=== PATIENT | female | born 1995 | race American Indian/Alaskan Native ===

== ENCOUNTER 2020-01-01 13:05 | Emergency (ER) | payer MEDICAID ==
[2020-01-01] MEDS ORDERED: IPRATROPIUM/ALBUTEROL SULFATE 3 ML AMPUL.NEB IH ONE (13:29)
[2020-01-01] MEDS ORDERED: dexAMETHasone 20 MG/5 ML VIAL IM ONE (13:29)
--- NOTE | 2020-01-01 14:49 | Emergency Department Report ---
ED Asthma HPI - General Chief Complaint: Adult Asthma Stated Complaint: ASTHMA Time Seen by Provider: 01/01/20 13:29 Source: patient Mode of arrival: Ambulatory Limitations: No Limitations - History of Present Illness Initial Comments: Patient is a 24-year-old female presents emergency room with complaints of asthma exacerbation for 3 days. She has had associated shortness of breath and wheezing for the last month but states it got worse in the last 3 days. She states that she ran out of her albuterol inhaler. She states that her AGILE TESTER Dr. Isaac at [facility] prescribed her a nebulizer machine but her insurance would not cover it and she did not prescribe her an inhaler. She denies any cough, nausea, vomiting, diarrhea, fever, abdominal pain, vaginal discharge or bleeding. She denies any allergies to medications. - Related Data Previous Rx's Medication Instructions Recorded Last Taken Type Albuterol INH(or & Nicu Only) 2 puff IH QID PRN #8.5 gram 01/01/20 Unknown Rx [ProAir HFA Inhaler] Prednisone [predniSONE 10 mg 10 mg PO .TAPER #1 tab.ds.pk 01/01/20 Unknown Rx (6-Day Pack, 21 Tabs)] Allergies Allergy/AdvReac Type Severity Reaction Status Date / Time No Known Allergies Allergy Unverified 01/01/20 13:06 ED Review of Systems ROS: Stated complaint: ASTHMA Other details as noted in HPI Comment: All other systems reviewed and negative ED Past Medical Hx - Past Medical History Previous Medical History?: Yes Hx Asthma: Yes - Surgical History Past Surgical History?: No - Social History Smoking Status: Never Smoker Substance Use Type: None - Medications Home Medications: Home Medications Medication Instructions Recorded Confirmed Last Taken Type Albuterol INH(or & Nicu Only) 2 puff IH QID PRN #8.5 gram 01/01/20 Unknown Rx [ProAir HFA Inhaler] Prednisone [predniSONE 10 mg 10 mg PO .TAPER #1 tab.ds.pk 01/01/20 Unknown Rx (6-Day Pack, 21 Tabs)] ED Physical Exam - General Limitations: No Limitations General appearance: alert, in no apparent distress - Head Head exam: Present: atraumatic, normocephalic - Eye Eye exam: Present: normal appearance - ENT ENT exam: Present: mucous membranes moist - Respiratory Respiratory exam: Present: decreased breath sounds (bilaterally). Absent: respiratory distress, wheezes, rales, rhonchi, stridor, chest wall tenderness, accessory muscle use - Cardiovascular Cardiovascular Exam: Present: regular rate, normal rhythm, normal heart sounds. Absent: systolic murmur, diastolic murmur, rubs, gallop - Neurological Exam Neurological exam: Present: alert, oriented X3 - Psychiatric Psychiatric exam: Present: normal affect, normal mood - Skin Skin exam: Present: warm, dry, intact ED Course Vital Signs 01/01/20 01/01/20 13:06 15:04 Temperature 98.4 F 98.7 F Pulse Rate 86 76 Respiratory 20 18 Rate Blood Pressure 125/68 Blood Pressure 132/72 [Left] O2 Sat by Pulse 100 99 Oximetry ED Medical Decision Making - Medical Decision Making Patient is a 24-year-old female presents emergency room with complaints of asthma exacerbation for 3 days. She has had associated shortness of breath and wheezing for the last month but states it got worse in the last 3 days. She states that she ran out of her albuterol inhaler. She states that her AGILE TESTER Dr. Isaac at [facility] prescribed her a nebulizer machine but her insurance would not cover it and she did not prescribe her an inhaler. She denies any cough, nausea, vomiting, diarrhea, fever, abdominal pain, vaginal discharge or bleeding. She denies any allergies to medications. Vitals are normal. On exam the decreased breath sounds bilaterally. Patient given de xamethasone IM and DuoNeb. After medications breath sounds have completely improved, patient has very good air movement, no wheezing, no rales, no rhonchi, no respiratory distress, no accessory muscle use, clear breath sounds. no clinical s/sx of PNA. Patient given prescription for albuterol inhaler and steroids. Advised patient to call to other pharmacies and discuss with her AGILE TESTER about where to get nebulizer machine. Advised patient Please take medication as prescribed. Please follow-up with your AGILE TESTER. Please follow-up with your primary care doctor. Return to emergency room for any new or worsening symptoms. Critical care attestation.: If time is entered above; I have spent that time in minutes in the direct care of this critically ill patient, excluding procedure time. ED Disposition Clinical Impression: Asthma Qualifiers: Asthma severity: unspecified severity Asthma persistence: unspecified Asthma complication type: with acute exacerbation Qualified Code(s): J45.901 - Unspecified asthma with (acute) exacerbation Disposition: - TO HOME OR SELFCARE Is pt being admited?: No Does the pt Need Aspirin: No Condition: Stable Instructions: Asthma (ED) Additional Instructions: Please take medication as prescribed. Please follow-up with your AGILE TESTER. Please follow-up with your primary care doctor. Return to emergency room for any new or worsening symptoms. Prescriptions: Prednisone [predniSONE 10 mg (6-Day Pack, 21 Tabs)] 10 mg PO .TAPER #1 tab.ds.pk Albuterol INH(or & Nicu Only) [ProAir HFA Inhaler] 2 puff IH QID PRN #8.5 gram PRN Reason: Shortness Of Breath Referrals: PRIMARY CARE, [Primary Care Provider] - 3-5 Days [facility] [Provider Group] - 3-5 Days Time of Disposition: 14:50 Print Language: DANISH
[2020-01-01 15:06] VITALS: BP 132/72
== END 2020-01-01 15:04 | disposition home or self-care (01) ==
LOC: ED 13:05
DX: J45.901 Unspecified asthma with (acute) exacerbation (principal); Z79.899 Other long term (current) drug therapy
CPT/HCPCS: 94640; 96372; 99282; J1100

== ENCOUNTER 2020-05-12 13:25 | Emergency (ER) | payer MEDICAID ==
[2020-05-12 14:53] VITALS: BP 115/67
--- NOTE | 2020-05-12 17:07 | Ultrasound Report ---
Limited OB Ultrasound Biophysical profile HISTORY: bpp/placenta well being. TECHNIQUE: Grayscale and color imaging performed. COMPARISON: None FINDINGS: Single intrauterine gestation with cephalic presentation. Placenta is anterior/fundal and g rade 1. Heart rate is 152 bpm. On biophysical profile, the fetus received a score of 2 out of 2 for breathing, movement, posture/ton e, and qualitative JESSICA. Total score was 8 out of 8. IMPRESSION: 1. Single viable intrauterine gestation as above. 2. Normal BPP. Signer Name: Roc Gonsales MD Signed: 05/12/2020 5:02 PM Workstation Name: [id number]
--- NOTE | 2020-05-12 17:14 | Ultrasound Report ---
ULTRASOUND OBSTETRIC LIMITED ULTRASOUND BIOPHYSICAL PROFILE INDICATION / CLINICAL INFORMATION: bpp/placenta well being. Clinical Gestational Age (GA): 37.1 weeks.days COMPARISON: None available. FINDINGS: BREATHING MOVEMENT = 2 GROSS BODY MOVEMENT = 2 TONE = 2 QUALITATIVE AMNIOTIC FLUID VOLUME = 2 TOTAL BIOPHYSICAL SCORE = 8/8 HEART RATE (beats per minute): 140 AMNIOTIC FLUID INDEX (cm) = subjectively normal (normal = 7-24 cm) PRESENTATION: Cephalic. ADDITIONAL FINDINGS: Placenta is fundal and grade 1. IMPRESSION: 1. Biophysical Score = 8/8 2. No acute sonographic abnormality. Signer Name: Kellie Farrell MD Signed: 05/12/2020 5:10 PM Workstation Name: [id number]
[2020-05-12 17:29] LABS: Hematocrit 33.1 % (30.3-42.9); Hemoglobin 11.2 gm/dl (10.1-14.3); Mean Corpuscular HGB Conc 34 % (30-34); Mean Corpuscular Volume 87 fl (79-97); Platelet Count 238 K/mm3 (140-440); Red Cell Distribution Width 13.9 % (13.2-15.2)
[2020-05-12 17:51] LABS: Alanine Aminotransferase 7 units/L (7-56); Albumin 3.1 g/dL (3.9-5); Blood Urea Nitrogen 6 mg/dL (7-17); Calcium 8.4 mg/dL (8.4-10.2); Hemolysis Index 9
[2020-05-12 17:52] LABS: BUN/Creatinine Ratio 15
--- NOTE | 2020-05-13 03:17 | Event Note ---
Date: 05/12/20 S: Pt is a 25 yo at 37w1d EGA who presents by ambulance reporting a fall earlier today. She states she was standing in the shower, wrapped herself in a towel, stepped out of the tub, and woke up on her side on the floor. She voided involuntarily and her hand was shaking when she woke up, which she states happens when she is nervous. She does not recall falling. Her roommate found her on the floor and called an ambulance. She reports abdominal soreness, frontal headache, and black spots in vision. She denies vaginal bleeding or leakage of fluid. She reports positive movement and contractions that have since resolved with rest. O: NAD FHT baseline 140 bpm, no decels, pos accels, mod variability No contractions on toco Abdomen soft to palpation Extremities wnl BPP 8/8 A: 25 yo at 37w1d EGA Fall of unknown origin FHT category 1, reassuring status Vital signs and labs stable Rh positive P: Transfer to ED
== END 2020-05-12 19:00 | disposition home or self-care (01) ==
LOC: APU 13:25 → ED 13:25 → TRG 13:25 → EDSTATUS 18:39 → ED 19:00
DX: O26.893 Other specified pregnancy related conditions, third trimester (principal); R10.9 Unspecified abdominal pain; R51 Headache; Z3A.37 37 weeks gestation of pregnancy; Z53.21 Procedure and treatment not carried out due to patient leaving prior to being seen by health care provider
CPT/HCPCS: 36415; 76815; 76819; 80053; 85027

== ENCOUNTER 2020-05-25 12:53 | Inpatient (IN) | payer MEDICAID ==
[2020-05-25] MEDS ORDERED: ePHEDrine SULFATE 50 MG/1 ML INJ IV PRN ×2 (13:15→22:20)
[2020-05-25] MEDS ORDERED: PROMETHAZINE 25 MG TAB PO PRN (13:15)
[2020-05-25] MEDS ORDERED: AMPICILLIN/NS 2 GM/100 ML 2 GM/100 ML BAG IV ONE ×2 (13:15→16:00)
[2020-05-25] MEDS ORDERED: miSOPROStol 200 MCG TAB PR PRN (13:15)
[2020-05-25] MEDS ORDERED: MINERAL OIL 30 ML ORAL LIQD PO PRN (13:15)
[2020-05-25] MEDS ORDERED: ONDANSETRON 4 MG/2 ML INJ IV PRN (13:15)
[2020-05-25] MEDS ORDERED: fentaNYL 100 MCG/2 ML INJ IV PRN (13:15)
[2020-05-25] MEDS ORDERED: TERBUTALINE 1 MG/1 ML INJ SUB-Q PRN (13:15)
[2020-05-25] MEDS ORDERED: METHYLERGONOVINE MALEATE 0.2 MG/ML VIAL IM PRN (13:15)
[2020-05-25] MEDS ORDERED: LIDOCAINE (2%) 20 MG/1 ML VIAL 20 ML MDV INFILTRATI ONE (13:15)
[2020-05-25] MEDS ORDERED: BUTORPHANOL 2 MG/1 ML INJ IV PRN ×2 (13:15)
[2020-05-25] MEDS ORDERED: ACETAMINOPHEN 325 MG TAB PO PRN (13:15)
[2020-05-25] MEDS ORDERED: NALOXONE 0.4 MG/1 ML INJ IV PRN (13:15)
[2020-05-25] MEDS ORDERED: OXYTOCIN DRIP 30 UNITS/500 ML BAG IV SCH (14:00)
[2020-05-25] MEDS: LACTATED RINGERS 1,000 ML IV SCH ×3 (15:40→23:22)
[2020-05-25 16:05] LABS: Hematocrit 35.3 % (30.3-42.9); Hemoglobin 12.6 gm/dl (10.1-14.3); Mean Corpuscular HGB Conc 36 % (30-34); Mean Corpuscular Volume 85 fl (79-97); Platelet Count 265 K/mm3 (140-440); Red Blood Count 4.16 M/mm3 (3.65-5.03); Red Cell Distribution Width 13.9 % (13.2-15.2)
--- NOTE | 2020-05-25 16:38 | History and Physical Report ---
History of Present Illness Date of examination: 05/25/20 Date of admission: 05/25/20 12:53 Chief complaint: Leaking fluid History of present illness: Pt is a 25 yo at 39w0d EGA who presents with leaking clear fluid since 1100 today. She reports positive movement, contractions, and denies vaginal bleeding. She has received care with [facility] tender helper. 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 She is GBS positive, Rubella equivocal. Past History Past Medical History: asthma, neurologic (recent fall with loss of consciousness) Past Surgical History: no surgical history [employer] History: herpes (no hx outbreak or prodrome) Family/Genetic History: hypertension, sickle cell/trait Social history: no significant social history - Obstetrical History Expected Date of Delivery: 06/01/20 Actual Gestation: 39 Week(s) 0 Day(s) : 2 Para: 1 Hx # Term Pregnancies: 1 Number of Living Children: 1 Medications and Allergies Allergies Allergy/AdvReac Type Severity Reaction Status Date / Time No Known Allergies Allergy Verified 05/23/20 13:54 Home Medications Medication Instructions Recorded Confirmed Last Taken Type Albuterol Mdi (or & Nicu Only) 2 puff IH QID PRN #8.5 gram 01/01/20 05/25/20 Unknown Rx [ProAir HFA Inhaler] Prednisone [predniSONE 10 mg 10 mg PO .TAPER #1 tab.ds.pk 01/01/20 05/25/20 Unknown Rx (6-Day Pack, 21 Tabs)] predniSONE [Deltasone] 50 mg PO QDAY #4 tab 04/02/20 05/25/20 Unknown Rx Active Meds: Active Medications Acetaminophen (Tylenol) 650 mg PO Q4H PRN PRN Reason: Pain, Mild (1-3) Butorphanol Tartrate (Stadol) 1 mg IV Q2H PRN PRN Reason: Pain, Moderate(4-6) LABOR PAIN Butorphanol Tartrate (Stadol) 2 mg IV Q2H PRN PRN Reason: Pain , Severe (7-10) Ephedrine Sulfate (Ephedrine Sulfate) 10 mg IV Q2M PRN PRN Reason: Hypotension Fentanyl (Sublimaze) 100 mcg IV Q2H PRN PRN Reason: Pain,Severe (7-10) LABOR PAIN Oxytocin/Sodium Chloride (Pitocin/Ns 30 Unit/500ml) 30 units in 500 mls @ 2 mls/hr IV TITR RICHARD; Protocol Last Admin: 05/25/20 15:50 Dose: 2 ml/hr, 2 mls/hr Documented by: Lactated Ringer's (Lactated Ringers) 1,000 mls @ 125 mls/hr IV DIRECT RICHARD Last Admin: 05/25/20 15:40 Dose: 125 mls/hr Documented by: Oxytocin/Sodium Chloride (Pitocin/Ns 20 Unit/1000ml Drip) 20 units in 1,000 mls @ 125 mls/hr IV DIRECT RICHARD Ampicillin Sodium (Ampicillin/Ns 1 Gm/50 Ml) 1 gm in 50 mls @ 100 mls/hr IV Q4H RICHARD; Protocol Ampicillin Sodium (Ampicillin/Ns 2 Gm/100 Ml) 2 gm in 100 mls @ 100 mls/hr IV ONCE ONE; Protocol Stop: 05/25/20 16:59 Last Admin: 05/25/20 15:40 Dose: 100 mls/hr Documented by: Methylergonovine Maleate (Methergine) 0.2 mg IM ONCE PRN PRN Reason: Uterine Bleeding Mineral Oil (Mineral Oil) 30 ml PO QHS PRN PRN Reason: Constipation Misoprostol (Cytotec) 800 mcg [place] ONCE PRN PRN Reason: Uterine Bleeding Naloxone HCl (Naloxone) 0.1 mg IV Q2MIN PRN PRN Reason: Res Rate </= 8 or 02 SAT < 92% Ondansetron HCl (Zofran) 4 mg IV Q8H PRN PRN Reason: Nausea And Vomiting Promethazine HCl (Phenergan) 25 mg PO Q6H PRN PRN Reason: Nausea And Vomiting Terbutaline Sulfate (Brethine) 0.25 mg SUB-Q ONCE PRN PRN Reason: Hyperstimulation/Hypertonicity Review of Systems All systems: negative Genitourinary: leakage of fluid, contractions, no vaginal bleeding, no genital sores - Vital Signs Vital signs: Vital Signs Temp Resp 99.4 F 18 05/25/20 13:30 05/25/20 13:30 Temp Pulse Resp BP Pulse Ox 99.2 F 100 H 18 128/83 100 05/25/20 16:15 05/25/20 16:33 05/25/20 16:15 05/25/20 16:21 05/25/20 16:33 - Physical Exam Lungs: Positive: Normal air movement Abdomen: Positive: soft Uterus: Positive: enlarged (gravid) Extremities: Positive: normal - Obstetrical FHR: category 1 Uterine Contraction Monitor Mode: External Cervical Dilatation: 1 (per ASSISTANT ACCOUNT EXECUTIVE at office) Cervical Effacement Percentage: 50 station: -3 Uterine Contraction Frequency (min): 2.5 Uterine Contraction Pattern: Regular Uterine Tone Measurement Phase: Contraction Uterine Contraction Intensity: Moderate Results Result Diagrams: 05/25/20 15:30 Abnormal lab results 05/25/20 Range/Units 15:30 WBC 13.7 H (4.5-11.0) K/mm3 MCHC 36 H (30-34) % All other labs normal. 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
[2020-05-25] MEDS: AMPICILLIN/NS 1 GM/50 ML 1 GM/50 ML BAG IV SCH ×2 (19:52→23:55)
[2020-05-25] MEDS ORDERED: DEXMEDETOMIDINE 200 MCG/2 ML VIAL IV ONE (21:40)
--- NOTE | 2020-05-25 22:16 | Anesthesia Consultation ---
Anesthesia Consult and Med Hx Date of service: 05/25/20 - Airway Anesthetic Teeth Evaluation: Poor ROM Head & Neck: Adequate Mental/Hyoid Distance: Adequate Mallampati Class: Class II Intubation Access Assessment: Probably Good - Pulmonary Exam CTA: Yes - Cardiac Exam Cardiac Exam: RRR - Pre-Operative Health Status ASA Pre-Surgery Classification: ASA2 Proposed Anesthetic Plan: Epidural - Pulmonary Hx Smoking: No Hx Asthma: Yes (last attack as a child) Hx Respiratory Symptoms: No SOB: No COPD: No Home Oxygen Therapy: No Hx Pneumonia: No Hx Sleep Apnea: No - Cardiovascular System Hx Hypertension: No Hx Coronary Artery Disease: No Hx Heart Attack/AMI: No Hx Angina: No Hx Percutaneous Transluminal Coronary Angioplasty (PTCA): No Hx Cardia Arrhythmia: No Hx Pacemaker: No Hx Internal Defibrillator: No Hx Valvular Heart Disease: No Hx Heart Murmur: No Hx Peripheral Vascular Disease: No - Central Nervous System Hx Neuromuscular Disorder: Yes (recent loss of LOC, work up negative) Hx Seizures: No CVA: No Hx Back Pain: No Hx Psychiatric Problems: No - Gastrointestinal Hx Ulcer: No Hx Gastroesophageal Reflux Disease: No - Endocrine Hx Renal Disease: No Hx End Stage Renal Disease: No Hx Cirrhosis: No Hx Liver Disease: No Hx Insulin Dependent Diabetes: No Hx Non-Insulin Dependent Diabetes: No Hx Thyroid Disease: No Hx Hypothyroidism: No Hx Hyperthyroidism: No - Hematic Hx Anemia: No Hx Sickle Cell Disease: No - Other Systems Hx Alcohol Use: Yes (OCCASIONAL) Hx Substance Use: No Hx Cancer: No Hx Obesity: Yes
[2020-05-25] MEDS ORDERED: NALOXONE 2 MG/2 ML INJ IV PRN (22:20)
[2020-05-25] MEDS ORDERED: fentaNYL-BUPIV 2 MCG/ML-0.125% 200 MCG/100 ML BAG EPIDURAL SCH (23:00)
[2020-05-26] MEDS ORDERED: BUPIVACAINE/PF (0.25%) 2.5 MG/ML 10 ML VIAL INFILTRATI ONE (00:05)
[2020-05-26] MEDS: LACTATED RINGERS 1,000 ML IV SCH (00:50)
[2020-05-26] MEDS: OXYTOCIN 20 UNIT/1000ML DRIP 20 UNITS/1,000 ML BAG IV SCH ×2 (04:15→05:05)
[2020-05-26] MEDS ORDERED: PROMETHAZINE 25 MG TAB PO PRN (04:19)
[2020-05-26] MEDS ORDERED: WITCH HAZEL/ GLYCERIN PAD TP PRN (04:19)
[2020-05-26] MEDS ORDERED: ONDANSETRON 4 MG/2 ML INJ IV PRN (04:19)
[2020-05-26] MEDS ORDERED: diphenhydrAMINE 25 MG CAP PO PRN (04:19)
[2020-05-26] MEDS ORDERED: ACETAMINOPHEN 325 MG TAB PO PRN (04:19)
[2020-05-26] MEDS ORDERED: LANOLIN/ZINC/DIMETHICONE (LANSINOH) 7 GM TP PRN (04:19)
[2020-05-26] MEDS ORDERED: PROMETHAZINE 25 MG RECT SUPP PR PRN (04:19)
[2020-05-26] MEDS ORDERED: HYDROcodone/ACETAMINOPHEN 5-325 MG TAB PO PRN (04:19)
[2020-05-26] MEDS ORDERED: MAGNESIUM HYDROXIDE (MOM) ORAL LIQD UDC PO PRN (04:19)
--- NOTE | 2020-05-26 04:19 | Procedure Note ---
OB Delivery Note - Delivery Date of Delivery: 05/26/20 Surgeon: RONNIE MATTSON Estimated blood loss: <100cc - Vaginal Delivery presentation: vertex Delivery position: OA Delivery augmentation: pitocin Delivery monitor: external FHT, external uterine Route of delivery: Delivery placenta: spontaneous Delivery cord: 3 umbilical vessels Episiotomy: none Delivery laceration: none Anesthesia: epidural - A at 1 minute: 8 at 5 minutes: 9 Infant Gender: Female (weight 7lbs 9oz)
[2020-05-26] MEDS: IBUPROFEN 600 MG TAB PO SCH ×3 (08:36→19:14)
--- NOTE | 2020-05-26 16:59 | Post Anesthesia Evaluation ---
- Post Anesthesia Evaluation Patient Participated: Yes Airway Patent: Yes Stable Respiratory Function: Yes Nausea/Vomiting: No Temp > 96.8F: Yes Pain Manageable: Yes Adequeate Hydration: Yes Anesthesia Complications: No Block Receding Appropriately: Yes Patient on Ventilator: No
[2020-05-26 17:57] LABS: Hematocrit 33.7 % (30.3-42.9); Hemoglobin 11.3 gm/dl (10.1-14.3)
[2020-05-27] MEDS: IBUPROFEN 600 MG TAB PO SCH ×2 (04:14→06:30)
[2020-05-27] MEDS ORDERED: DIPHtheria,PERTUSSIS(ACELL),TETANUS VACCINE/PF 0.5 ML VIAL IM ONE (06:00)
--- NOTE | 2020-05-27 09:16 | Progress Note ---
Assessment and Plan - Patient Problems (1) Vaginal delivery Current Visit: Yes Status: Acute Plan to address problem: Patient doing well Discharge home Subjective - Subjective Date of service: 05/27/20 Interval history: Patient is without any significant complaints. Her pain is well controlled. Patient reports: appetite normal, voiding normally, pain well controlled : doing well Objective - Vital Signs Latest vital signs: Vital Signs Temp Pulse Resp BP Pulse Ox 05/27/20 08:19 98.2 F 76 18 117/73 99 05/27/20 00:25 98.2 F 88 20 117/77 96 05/26/20 15:56 97.9 F 84 20 141/91 99 Intake and Output 05/26/20 05/27/20 05/27/20 22:59 06:59 14:59 Intake Total 440 240 240 Balance 440 240 240 Intake: Oral 440 240 240 Other: Total, Intake Amount 200 240 240 # Voids Void 1 1 - Exam Abdomen: Present: normal appearance, soft
--- NOTE | 2020-05-27 09:17 | Discharge Summary ---
Providers - Providers Date of Admission: 05/25/20 12:53 Date of discharge: 05/27/20 Attending physician: RONNIE MATTSON Primary care physician: LEATHA RAMIREZ Hospitalization Reason for admission: rupture of membranes Delivery: Discharge diagnosis: IUP at term delivered Hospital course: The patient was admitted in active labor with spontaneous rupture membranes. She had a successful vaginal delivery. Her course was uneventful. Condition at discharge: Good Disposition: DC-01 TO HOME OR SELFCARE - Discharge Diagnoses (1) Vaginal delivery Status: Acute Plan - Discharge Medications Prescriptions: Ibuprofen [Motrin] 800 mg PO Q8HR PRN #60 tablet PRN Reason: Pain , Severe (7-10) HYDROcodone/APAP 5-325 [[place] 5/325] 1 each PO Q6HR PRN #15 tablet PRN Reason: Pain - Provider Discharge Summary Activity: no sex for 6 weeks, no heavy lifting 4 weeks, no strenuous exercise Diet: routine Instructions: routine Additional instructions: [] Smoking cessation referral if applicable(refer to patient education folder for contact #) [] Refer to [facility] Booklet Call your doctor immediately for: * Fever > 100.5 * Heavy vaginal bleeding ( >1 pad per hour) * Severe persistent headache * Shortness of breath * Reddened, hot, painful area to leg or breast * Schedule visit in 4 weeks - Follow up plan
[2020-05-27 12:53] VITALS: BP 146/93
== END 2020-05-27 12:45 | disposition home or self-care (01) | DRG 774 ==
LOC: LD 12:53 → OB 05-26 06:16
PROVIDERS: ADMIT Obstetrics & Gynecology; ATTEND Obstetrics & Gynecology
PROC: 10E0XZZ Delivery of Products of Conception, External Approach (ICD-10-PCS; principal; 2020-05-26)
PROC: 3E033VJ Introduction of Other Hormone into Peripheral Vein, Percutaneous Approach (ICD-10-PCS; 2020-05-26)
PROC: 3E0R3BZ Introduction of Anesthetic Agent into Spinal Canal, Percutaneous Approach (ICD-10-PCS; 2020-05-26)
PROC: 00HU33Z Insertion of Infusion Device into Spinal Canal, Percutaneous Approach (ICD-10-PCS; 2020-05-26)
PROC: 3E0234Z Introduction of Serum, Toxoid and Vaccine into Muscle, Percutaneous Approach (ICD-10-PCS; 2020-05-27)
DX: O99.824 Streptococcus B carrier state complicating childbirth (principal); O98.52 Other viral diseases complicating childbirth; Z3A.39 39 weeks gestation of pregnancy; F32.9 Major depressive disorder, single episode, unspecified; Z37.0 Single live birth; O99.344 Other mental disorders complicating childbirth; Z23 Encounter for immunization; B00.89 Other herpesviral infection; O69.81X0 Labor and delivery complicated by cord around neck, without compression, not applicable or unspecified
CPT/HCPCS: 36415; 59025; 85014; 85018; 85027; 86592; 86850; 86900; 86901; 90471; 90715; G0378; J0290; J0595; J2405; J2590; J3490; J7120

== ENCOUNTER 2020-05-31 18:18 | Emergency (ER) | payer MEDICAID ==
[2020-05-31 18:23] VITALS: BP 147/98
--- NOTE | 2020-05-31 19:21 | Emergency Department Report ---
[facility] Chief Complaint: Eye Problems Stated Complaint: PINK EYE Time Seen by Provider: 05/31/20 19:00 Duration: 2 Days Side: Left Severity: mild Symptoms: Yes Eye Itching, Yes Eye Redness, Yes Eye Pain, Yes Mucous Drainage, Yes Purulent Drainage, No Blurred Vision, No Preceding URI, No H/O Allergic Rhinitis, No Contact Lens Use, No Trauma, No Fever, No Headache ED Review of Systems ROS: Stated complaint: PINK EYE Other details as noted in HPI Comment: All other systems reviewed and negative ED Past Medical Hx - Past Medical History Hx Hypertension: No Hx Heart Attack/AMI: No Hx Congestive Heart Failure: No Hx Diabetes: No Hx Deep Vein Thrombosis: No Hx Liver Disease: No Hx Renal Disease: No Hx Sickle Cell Disease: No Hx Seizures: No Hx Asthma: Yes (last attack as a child) Hx COPD: No Hx HIV: No - Surgical History Hx Pacemaker: No Hx Internal Defibrillator: No - Social History Smoking Status: Never Smoker Substance Use Type: None - Medications Home Medications: Home Medications Medication Instructions Recorded Confirmed Last Taken Type Albuterol Mdi (or & Nicu Only) 2 puff IH QID PRN #8.5 gram 01/01/20 05/25/20 Unknown Rx [ProAir HFA Inhaler] Prednisone [predniSONE 10 mg 10 mg PO .TAPER #1 tab.ds.pk 01/01/20 05/25/20 Unknown Rx (6-Day Pack, 21 Tabs)] predniSONE [Deltasone] 50 mg PO QDAY #4 tab 04/02/20 05/25/20 Unknown Rx HYDROcodone/APAP 5-325 [[place] 1 each PO Q6HR PRN #15 tablet 05/27/20 Unknown Rx 5/325] Ibuprofen [Motrin] 800 mg PO Q8HR PRN #60 tablet 05/27/20 Unknown Rx Tobramycin [Tobrex] 1 drop OP Q4H #1 bottle 05/31/20 Unknown Rx [facility] Exam - Exam General: Vital signs noted. No distress. Alert and acting appropriately. Eye Exam: Left Injection (Injected left conjunctiva with no evidence of abrasion or foreign bodies noted. Pupils are PERRLA EOMI), Left EOMI, Left Mucous Discharge, Left Purulent Discharge, Neither Chemosis, Neither Abnormal Pupil, Neither Eye Foreign Body, Neither Lid Foreign Body, Neither Fluorescein Uptake, Neither Fluorescein Uptake (slit lamp), Neither Cell/Flare (slit lamp), Neither Corneal Edema, Neither Photophobia HEENT: Yes Nasal Congestion, No Pharyngeal Erythema Remainder of HEENT: Normal Lungs: Yes Clear Lung Sounds, Yes Good Air Exchange, No Wheezes, No Stridor, No Cough, No Nasal Flaring, No Retractions, No Use of Accessory Muscles ED Course Vital Signs 05/31/20 18:22 Temperature 99.2 F Pulse Rate 80 Respiratory 18 Rate Blood Pressure 147/98 O2 Sat by Pulse 97 Oximetry Critical care attestation.: If time is entered above; I have spent that time in minutes in the direct care of this critically ill patient, excluding procedure time. ED Disposition Clinical Impression: Conjunctivitis Disposition: DC-01 TO HOME OR SELFCARE Is pt being admited?: No Does the pt Need Aspirin: No Condition: Stable Instructions: Conjunctivitis (ED) Referrals: PRIMARY CARE [Primary Care Provider] - 3-5 Days [facility] [Provider Group] - 3-5 Days
== END 2020-05-31 19:41 | disposition home or self-care (01) ==
LOC: ED 18:18
DX: H10.89 Other conjunctivitis (principal); J45.909 Unspecified asthma, uncomplicated
CPT/HCPCS: 99282